=== PATIENT | female | born 1985 | race Hispanic/Latino ===

== ENCOUNTER 2016-03-29 05:57 | Emergency (ER) | payer MEDICAID, OTHER ==
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
== END 2016-03-29 07:15 | disposition home or self-care (01) ==
LOC: NAV ERS 05:57
DX: S01.511A Laceration without foreign body of lip, initial encounter (principal); S00.83XA Contusion of other part of head, initial encounter; Z90.49 Acquired absence of other specified parts of digestive tract; Y04.2XXA Assault by strike against or bumped into by another person, initial encounter
CPT/HCPCS: 70100; 99283

== ENCOUNTER 2017-08-15 18:03 | Emergency (ER) | payer OTHER, SELFPAY ==
[2017-08-15] MEDS ORDERED: Diphenoxylate HCl/Atropine Tablet ONE (18:38)
[2017-08-15 18:42] LABS: Pregu Control Background? CLEAR/WHITE (CLR/WHITE); Pregu Control Bar Appear? YES (CONTROL BAR); Specific Gravity 1.026 (1.002-1.036)
[2017-08-15 18:43] LABS: Pregnancy Test - Urine (BHCG) Negative (Negative)
== END 2017-08-15 18:47 | disposition home or self-care (01) ==
LOC: NAV ERS 18:03
DX: A08.4 Viral intestinal infection, unspecified (principal)
CPT/HCPCS: 81025; 99284